=== PATIENT | female | born 1965 | race Caucasian/White ===

== ENCOUNTER → 2021-05-11 | Day surgery (SDC) | payer OTHER ==
[~2021-05-11] MED LIST: ZOCOR5 MG
== END | disposition home or self-care (01) ==
LOC: ADM 05-09 15:15 → AMB-ENDOS 08:53
PROVIDERS: ATTEND Colon & Rectal Surgery
DX: K62.89 Other specified diseases of anus and rectum (principal); K64.1 Second degree hemorrhoids; Z20.822 Contact with and (suspected) exposure to COVID-19